=== PATIENT | female | born 1955 | race African-American/Black ===

== ENCOUNTER 2016-08-25 03:18 | Observation (INO) | payer OTHER, MEDICAID ==
[~2016-08-25] VITALS: Ht 167.6 cm; Wt 153.5 kg
[~2016-08-25 03:18] MED LIST: CARAFATE1 GM PO; COL100 PO; ECO81 PO; IRON325 MG PO; KEFLEX500 MG PO; LASIX20 MG; LASIX20 MG PO; LISINOPRIL HCTZ1 TAB PO; PRILOSEC40 MG PO; REG5 PO; ZOC10 PO
--- NOTE | 2016-08-25 03:32 | NUR ---
EKG DONE IN TRIAGE.
[2016-08-25 04:01] LABS: BASOPHIL % 1.4 % (0-2); PLATELET COUNT 286 x10^3mcL (130-400); RED CELL DISTRIBUTION WIDTH 13.8 % (11.5-14.5)
--- NOTE | 2016-08-25 04:01 | NUR ---
PATIENT SEEN WITH COMPLAINR OF UPPER ANDOMINAL PAIN, NAUSEA AND FEELS SHE NEED TO BURP. PATIENT SEEN SLEEPING, EASILY AWAKEN, NO APPARENT DISTRESS.
[2016-08-25 04:02] LABS: CALCIUM 8.9 mg/dL (8.5-10.1); CARBON DIOXIDE 26.9 mmol/L (21-32); CREATININE SERUM 1.1 mg/dL (0.6-1.0); POTASSIUM SERUM 3.9 mmol/L (3.5-5.1)
[2016-08-25 04:08] LABS: ALBUMIN 3.5 g/dL (3.4-5.0); BILIRUBIN TOTAL 0.6 mg/dL (0.20-1.00); TOTAL PROTEIN, SERUM 7.7 g/dL (6.4-8.2)
--- NOTE | 2016-08-25 04:42 | NUR ---
PATIENT INSTRUCTED TO GIVE URINE SPECIMEN, UNABLE TO VOID AT THIS TIME.
[2016-08-25 04:59] LABS: microscopic required? NO
--- NOTE | 2016-08-25 04:59 | NUR ---
PATIENT WENT TO HAVE CT SCAN DONE.
[2016-08-25 05:10] LABS: UA SPECIFIC GRAVITY 1.025 (1.005-1.035); urine erythrocyte NEGATIVE (NEGATIVE)
--- NOTE | 2016-08-25 05:58 | NUR ---
PATIENT RETURN FRON CT SCAN, WAS MEDICATED WITH A GI CICKTAIL. PATIENT EXPRESS PAIN SCALE IS 8/10, BUT THE PAIN IS NOW A ACHE NOT STABBING. PATIENT IS ADMITTED TO THE HOSPITAL. MRSA SWAB WAS DONE. MED REC WAS DONE. SALINE LOCK INSERTED ON THE RIGTH HAND .
--- NOTE | 2016-08-25 06:31 | NUR ---
REPORT WAS GIVEN TO OLULOU. PATIENT WILL BE TRANSPORTED TO ROOM 255B.
--- NOTE | 2016-08-25 07:13 | NUR ---
PATIENT TRANSPORTED TO ROOM 255B. REPORT WAS GIVEN TO NATALIE
--- NOTE | 2016-08-25 07:30 | NUR ---
PT TRANSFERRED FROM ED VIA GURNEY, AAOX4 ABLE TO VERBALIZE NEEDS WITH CLEAR AND COHERENT SPEECH, ABLE TO TRANSFER SELF, C/O ABD PAIN 5/10, DENIES N&V, ACTIVE BOWEL SOUNDS X4 QUADS, ON TELE #6 NSR ON MONITOR, DENIES HEART/CHEST PAIN OR PRESSURE, RRR, S1&S2 NOTED, IV AT R/HAND HEPLOCK, AWAITING FOR ORDERS, PALPABLE PERIPHERAL PULSES, ALL EXTREMITIES WARM TO TOUCH, C/O "CRAMPING FEELING" AT BLE, CAP REFILL < 4 SECONDS, ORIENTED TO ROOM AND CALL LIGHT, WILL CONTINUE TO PROVIDE CARE.
--- NOTE | 2016-08-25 07:38 | NUR ---
RECEIVED PT FROM ED VIA CHARLENE AT 0707, PT'S AAOX4 LUNG SOUNDS CTA , ABD SOFT BS ACTIVE , PT C/O CHEST PAIN 06/23, WAS MEDICATED IN ER FOR PAIN ENDORSED TO AM NURSE TO F/U WITH PT . PLACED PT ON TELE NUMBER 8 THAT SHOWS SB HR 58, HL TO RA INPLACE , ORIENTED PT TO THE ROOM PT VERBALIZED UNDERSTANDING , CALL LIGHT WITHIN PT'S REACH.
[2016-08-25 08:27] LABS: T3 TOTAL 1.13 ng/mL
--- NOTE | 2016-08-25 08:29 | NUR ---
ROUNDS WITH DR TONI MD UPDATED PT ON POC.
[2016-08-25 09:03] LABS: CHOLESTEROL/HDL RATIO 3.1
[2016-08-25 09:38] LABS: FREE T4 0.92 ng/dL (0.76-1.46); FREE THYROXINE INDEX 2.3 ug/dL (1.4-4.5); T4(THYROXINE) 6.8 ug/dL (4.7-13.3)
[2016-08-25 10:16] LABS: AMPHETAMINE QUAL UR NEGATIVE (NEG <=1000)
[2016-08-25 10:26] VITALS: BP 133/74
--- NOTE | 2016-08-25 13:09 | NUR ---
C/O LEFT EAR PAIN, DENIES DISCHARGE OR LOSS OF HEARING, DENIES INSERTING "ANYTHING INTO THE EARCANAL" HAS NOT TAKEN ANY MEDICATIONS TO IMPROVE THE DISCOMFORT, DR WYNN MADE AWARE AND WILL ASSESS PT.
--- NOTE | 2016-08-25 13:20 | NUR ---
TOLERATED LUNCH WITHOUT GI DISTRESS, DENEIS HEART RELATED PAIN OR DISCOMFORT, CALL LIGHT WITHIN REACH.
[2016-08-25 13:48] VITALS: BP 122/58
--- NOTE | 2016-08-25 16:49 | NUR ---
C/O UPPERGASTRIC PAIN 7/10, ASSISTED TO POSITION OF COMFORT, ADMINISTERED PAIN MED ORDERED, WILL CONTINUE TO MONITOR CLOSELY FOR ADEQUATE PAIN CONTROL, CALL LIGHT WITHIN REACH.
[2016-08-25 17:09] VITALS: BP 119/71
--- NOTE | 2016-08-25 19:05 | NUR ---
SITTING UP AT EDGE OF BED, TOLERATED MEALS WITHOUT GI DISTRESS, DENIES HEART RELATED PAIN OR DISCOMFORT, ABD PAIN IMPROVED AT THIS TIME, NO OTHER SIGNIFICANT CHANGES NOTED, CARE ENDORSED TO NIGHT NURSE.
--- NOTE | 2016-08-25 20:37 | NUR ---
SEATED AT BEDSIDE LEANING AT BEDSIDE TABLE, SUBSIDING MID ABDL PAIN FROM 7 TO 5/10 AFTER GETTING MORPHINE IVP PER REPORT, DENIES NAUSEA OR VOMITNG, NO DIARRHEA, NO DISTRESS LUNGS CTA, TELE #6 INPLACED SR IN THE MONITOR, IVF NS INFUSING @ 50CC/HR IV ACCESS RH PATENT NON INFIL, SCD'S FOR DVT PROPHYLAXIS, CALL LIGHT AT REACH, SHIFT ASSESSMENT DONE, ATTENDED NEEDS, CONT TO MONITOR.
[2016-08-25 22:10] VITALS: BP 133/67
--- NOTE | 2016-08-26 02:00 | NUR ---
NO SIGNIFICANT CHANGES, SLEPT WELL, SR IN THE MONITOR, SCD'S ON FOR DVT PROPHYLAXIS, IVF INFUSING WELL, CHECKED AT INTERVALS.
--- NOTE | 2016-08-26 04:08 | NUR ---
PT AWAKE HAVE BM X1 SMALL AMT, CLAIMED FEELING NAUSEATED, ZOFRAN IVP GIVEN PER PRN ORDER, CONT TO MONITOR.
--- NOTE | 2016-08-26 04:30 | NUR ---
C/O BACK PAIN 7/10 PER ASSESSMENT, MORPHINE 2MG IVP GIVEN PER PRN ORDER FOR PAIN, CONT TO MONITOR.
[2016-08-26 05:42] VITALS: BP 120/54
[2016-08-26 06:39] VITALS: BP 107/54
--- NOTE | 2016-08-26 06:48 | NUR ---
PT COMFORTABLE AT THIS TIME, MORPHINE IV WAS GIVEN EARLIER WHICH OFFERS GOOD RELIEF, BS 129 MG/DL, IVF INFUSING WELL, CONT TO MONITOR.
[2016-08-26 07:08] LABS: CALCIUM 8.5 mg/dL (8.5-10.1); CARBON DIOXIDE 29.7 mmol/L (21-32); CREATININE SERUM 1.1 mg/dL (0.6-1.0); PHOSPHOROUS 3.9 mg/dL (2.5-4.9); POTASSIUM SERUM 4.6 mmol/L (3.5-5.1)
--- NOTE | 2016-08-26 07:20 | NUR ---
AAOX4 ABLE TO VERBALIZE NEEDS WITH CLEAR AND COHERENT SPEECH, C/O "BURNING SENSATION" IN HER ESOPHAGUS, DENIES HEART RELATED PAIN OR DISCOMFORT, ON TELE #6 NSR ON MONITOR, IV AT L/HAND INFUSING NS AT 50ML/HR, CALL LIGHT WITHIN REACH, WILL CONTINUE TO PROVIDE CARE.
[2016-08-26 07:29] LABS: BASOPHIL % 0.6 % (0-2); PLATELET COUNT 256 x10^3mcL (130-400); RED CELL DISTRIBUTION WIDTH 13.7 % (11.5-14.5)
[2016-08-26] MEDS ORDERED: OMEPRAZOLE40 M1 PO (09:26)
[2016-08-26 09:36] VITALS: BP 96/60
--- NOTE | 2016-08-26 10:33 | NUR ---
TELE REPORTS HR ON THE 40'S, UPON ASSESSMENT, PT IS SLEEPING, AROUSABLE TO LIGHT NOISE, DENIES ANY DIZZINESS OR PALPITATIONS, HR IS NOW ON THE 50'S, WILL CONTINUE TO MONITOR CLOSELY.
[2016-08-26] MEDS ORDERED: CARAFATE1 GM PO (11:22)
[2016-08-26 11:42] VITALS: BP 96/60
--- NOTE | 2016-08-26 12:57 | NUR ---
FAM AT BEDSIDE. PATIENT DISCHARGED HOME. DISCHARGE INSTRUCTIONS REVIEWED WITH PATIENT INCLUDING CALLING PCP ON 08/28/16 TO SCHEDULE F/U APPOINTMENT, PATIENT VERBALIZED UNDERSTANDING DISCHARGE INSTRUCTIONS. IV D/C'D, CATH TIP INTACT, NO BLEEDING OR PHLEBITIS NOTED, COVERED WITH BANDAID, TELE MONITOR REMOVED, PATIENT AMBULATED DOWNSTAIRS WITH FAM AND ENVIRONMENTAL EMERGENCIES ASSISTANT.
== END 2016-08-26 12:45 | disposition home or self-care (01) | DRG 391 ==
LOC: ED 03:18 → DU 05:45
PROVIDERS: Emergency Medicine; ADMIT Family Medicine
DX: K21.9 Gastro-esophageal reflux disease without esophagitis (principal); E43 Unspecified severe protein-calorie malnutrition; Z68.43 Body mass index [BMI] 50.0-59.9, adult; D68.69 Other thrombophilia; I10 Essential (primary) hypertension; E11.65 Type 2 diabetes mellitus with hyperglycemia; E11.59 Type 2 diabetes mellitus with other circulatory complications; E11.51 Type 2 diabetes mellitus with diabetic peripheral angiopathy without gangrene; K56.41 Fecal impaction; K57.30 Diverticulosis of large intestine without perforation or abscess without bleeding; D25.9 Leiomyoma of uterus, unspecified; N28.1 Cyst of kidney, acquired; E03.9 Hypothyroidism, unspecified; E78.5 Hyperlipidemia, unspecified; E66.01 Morbid (severe) obesity due to excess calories; Z91.19 Patient's noncompliance with other medical treatment and regimen
CPT/HCPCS: 80307; 82962; 83880; 84439; C9113; G0378; J2270; J2405; J7030; J8597; Q0092

== ENCOUNTER 2016-08-29 07:04 | Inpatient (IN) | payer OTHER, MEDICAID ==
[~2016-08-29] VITALS: Ht 167.6 cm; Wt 154.2 kg
[~2016-08-29 07:04] MED LIST changes: +OMEPRAZOLE40 M1 PO
[2016-08-29 08:29] LABS: microscopic required? NO
[2016-08-29 08:37] LABS: PLATELET COUNT 279 x10^3mcL (130-400); RED CELL DISTRIBUTION WIDTH 13.9 % (11.5-14.5)
[2016-08-29 08:42] LABS: UA SPECIFIC GRAVITY 1.015 (1.005-1.035); urine erythrocyte NEGATIVE (NEGATIVE)
[2016-08-29 08:59] LABS: T3 TOTAL 0.95 ng/mL
[2016-08-29 09:19] LABS: BAND NEUTROPHIL 1 % (0-10); BASOPHIL 0 % (0-2); MONOCYTE 6 % (0-7); SEGMENTED NEUTROPHILS 48 % (37-75)
[2016-08-29 09:20] LABS: PLATELET MORPHOLOGY PLATELETS NORMAL; rbc morphology (normal/abnorm) ABNORMAL (NORMAL)
[2016-08-29 09:38] LABS: CALCIUM 9.1 mg/dL (8.5-10.1); CARBON DIOXIDE 28.6 mmol/L (21-32); CHLORIDE SERUM 106 mmol/L (98-107); CREATININE SERUM 0.9 mg/dL (0.6-1.0); GFR1 > 60 mL/min; GLUCOSE SERUM 127 mg/dL (74-106); POTASSIUM SERUM 4.4 mmol/L (3.5-5.1); SODIUM SERUM 143 mmol/L (136-145)
[2016-08-29 09:47] LABS: ALBUMIN 3.4 g/dL (3.4-5.0); BILIRUBIN TOTAL 0.5 mg/dL (0.20-1.00); TOTAL PROTEIN, SERUM 7.8 g/dL (6.4-8.2)
[2016-08-29 09:48] LABS: ALKALINE PHOSPHATASE 113 U/L (46-116); ALT/SGPT 32 U/L (14-59); AST/SGOT 24 U/L (15-37); CHOLESTEROL 189 mg/dL (<200); CHOLESTEROL/HDL RATIO 2.5; HDL CHOLESTEROL 75 mg/dL (40-60); LIPASE 90 IU/L (73-393); TRIGLYCERIDES 43 mg/dL (<150)
[2016-08-29 10:31] LABS: FREE THYROXINE INDEX 2.2 ug/dL (1.4-4.5)
[2016-08-29 10:32] LABS: FREE T4 0.87 ng/dL (0.76-1.46)
[2016-08-29 10:55] LABS: AMPHETAMINE QUAL UR NONE DETECTED (NEG <=1000)
[2016-08-29 11:42] VITALS: BP 183/108
[2016-08-29 12:47] VITALS: Ht 167.6 cm; Wt 154.2 kg
[2016-08-29 13:00] VITALS: BP 164/89
[2016-08-29 14:30] VITALS: BP 150/84
[2016-08-29 17:50] VITALS: BP 144/88
[2016-08-29 19:05] VITALS: BP 139/76
[2016-08-29 21:28] VITALS: BP 151/89
[2016-08-30 04:51] LABS: BASOPHIL % 0.5 % (0-2); PLATELET COUNT 248 x10^3mcL (130-400); RED CELL DISTRIBUTION WIDTH 13.6 % (11.5-14.5)
[2016-08-30 04:55] LABS: CALCIUM 8.7 mg/dL (8.5-10.1); CARBON DIOXIDE 25.6 mmol/L (21-32); CHLORIDE SERUM 108 mmol/L (98-107); CREATININE SERUM 0.9 mg/dL (0.6-1.0); GFR1 > 60 mL/min; GLUCOSE SERUM 121 mg/dL (74-106); POTASSIUM SERUM 4.5 mmol/L (3.5-5.1); SODIUM SERUM 143 mmol/L (136-145)
[2016-08-30 06:26] VITALS: BP 151/88
[2016-08-30 10:15] VITALS: BP 136/79
[2016-08-30 14:02] VITALS: BP 142/80
[2016-08-30 18:20] VITALS: BP 153/93
[2016-08-30 21:12] VITALS: BP 149/75
[2016-08-31 01:35] VITALS: BP 119/74
[2016-08-31 05:19] VITALS: BP 121/80
[2016-08-31 06:05] LABS: CALCIUM 8.9 mg/dL (8.5-10.1); CREATININE SERUM 1.1 mg/dL (0.6-1.0); POTASSIUM SERUM 4.5 mmol/L (3.5-5.1)
[2016-08-31 06:42] LABS: BASOPHIL % 1.5 % (0-2); PLATELET COUNT 260 x10^3mcL (130-400); RED CELL DISTRIBUTION WIDTH 12.8 % (11.5-14.5)
[2016-08-31 10:08] VITALS: BP 132/87
[2016-08-31] MEDS ORDERED: CLOPIDOGREL75 M1 PO (11:39)
[2016-08-31] MEDS ORDERED: PEP20 PO (11:40)
[2016-08-31] MEDS ORDERED: LIPI10 PO (11:40)
[2016-08-31] MEDS ORDERED: HCTZ/LISINOPRIL1 TA2 (11:41)
[2016-08-31 14:34] VITALS: BP 132/87
[2016-08-31 14:52] VITALS: BP 128/85
== END 2016-08-31 15:20 | disposition home or self-care (01) | DRG 391 ==
LOC: ED 07:04 → DU 09:35
PROVIDERS: Family Medicine; Internal Medicine Cardiovascular Disease; Specialist; ADMIT Family Medicine
PROC: B310ZZZ Fluoroscopy of Thoracic Aorta (ICD-10-PCS; 2016-08-30)
PROC: B211YZZ Fluoroscopy of Multiple Coronary Arteries using Other Contrast (ICD-10-PCS; 2016-08-30)
PROC: B215YZZ Fluoroscopy of Left Heart using Other Contrast (ICD-10-PCS; 2016-08-30)
PROC: 4A023N7 Measurement of Cardiac Sampling and Pressure, Left Heart, Percutaneous Approach (ICD-10-PCS; principal; 2016-08-30 07:45)
DX: K21.9 Gastro-esophageal reflux disease without esophagitis (principal); E43 Unspecified severe protein-calorie malnutrition; N17.0 Acute kidney failure with tubular necrosis; Z68.43 Body mass index [BMI] 50.0-59.9, adult; D68.69 Other thrombophilia; E11.65 Type 2 diabetes mellitus with hyperglycemia; I10 Essential (primary) hypertension; E66.01 Morbid (severe) obesity due to excess calories; N28.1 Cyst of kidney, acquired; K57.30 Diverticulosis of large intestine without perforation or abscess without bleeding; D25.9 Leiomyoma of uterus, unspecified; E78.5 Hyperlipidemia, unspecified; Z79.84 Long term (current) use of oral hypoglycemic drugs
CPT/HCPCS: CLHCL; 80307; 83880; 84439; 85378; C1769; C1887; C1894; C9113; J0360; J1644; J2001; J2250; J3010; J3490; J7030; J7040; J8597; Q0092; Q0163; Q9967

== ENCOUNTER → 2017-02-09 | Outpatient (CLI) | payer OTHER, MEDICAID ==
[~2017-02-09] MED LIST changes: +CLOPIDOGREL75 M1 PO; +HCTZ/LISINOPRIL1 TA2; +LIPI10 PO; +PEP20 PO
== END | disposition home or self-care (01) ==
LOC: MA 09:56
PROC: BH02ZZZ Plain Radiography of Bilateral Breasts (ICD-10-PCS; principal; 2017-02-09)
DX: Z12.31 Encounter for screening mammogram for malignant neoplasm of breast (principal)
CPT/HCPCS: G0202

== ENCOUNTER 2019-01-09 23:35 | Emergency (ER) | payer OTHER, MEDICAID ==
[~2019-01-09] VITALS: Ht 167.6 cm; Wt 159.7 kg
[2019-01-09 23:55] VITALS: Ht 167.6 cm; Wt 159.7 kg
[2019-01-10 04:31] VITALS: BP 186/90
== END 2019-01-10 04:31 | disposition home or self-care (01) ==
LOC: ED 23:35
DX: T15.92XA Foreign body on external eye, part unspecified, left eye, initial encounter (principal); T15.91XA Foreign body on external eye, part unspecified, right eye, initial encounter; J45.909 Unspecified asthma, uncomplicated; I10 Essential (primary) hypertension; E11.9 Type 2 diabetes mellitus without complications; E78.00 Pure hypercholesterolemia, unspecified; Z98.890 Other specified postprocedural states; Z88.6 Allergy status to analgesic agent; W45.8XXA Other foreign body or object entering through skin, initial encounter; Y93.89 Activity, other specified; Y92.89 Other specified places as the place of occurrence of the external cause; Y99.8 Other external cause status

== ENCOUNTER 2019-08-08 19:32 | Emergency (ER) | payer OTHER, MEDICAID, SELFPAY ==
[~2019-08-08] VITALS: Ht 167.6 cm; Wt 155.1 kg
[2019-08-08 19:50] VITALS: Ht 167.6 cm; Wt 155.1 kg
[2019-08-08 22:13] VITALS: BP 171/88
== END 2019-08-08 22:13 | disposition home or self-care (01) ==
LOC: ED 19:32
DX: R05 Cough (principal); J45.909 Unspecified asthma, uncomplicated; I10 Essential (primary) hypertension; E11.9 Type 2 diabetes mellitus without complications; E78.00 Pure hypercholesterolemia, unspecified; Z88.6 Allergy status to analgesic agent; Z20.828 Contact with and (suspected) exposure to other viral communicable diseases
CPT/HCPCS: Q0092